=== PATIENT | female | born 1960 | race Caucasian/White ===

== ENCOUNTER → 2020-08-27 | Outpatient (CLI) | payer MEDICARE ==
[~2020-08-27] MED LIST: DEXILANT30 MG PO; DIFLUCAN150 MG PO; NEURONTIN 300300 MG PO; NYSTATIN100000 UNI PO; SYMBICORT 16010.2 GM INH; TIZANIDINE HCL4 MG PO; ZANAFLEX4 MG PO
== END ==
LOC: KOH-I 09:51
DX: S62.347A Nondisplaced fracture of base of fifth metacarpal bone, left hand, initial encounter for closed fracture (principal); W19.XXXA Unspecified fall, initial encounter
CPT/HCPCS: 73200

== ENCOUNTER 2020-12-22 06:49 | Day surgery (SDC) | payer MEDICARE ==
[~2020-12-22] VITALS: Ht 152.4 cm; Wt 59.0 kg
[~2020-12-22 06:49] MED LIST changes: +ATENOLOL25 MG PO; +DICLOFENAC GEL 1% TOP; +DOXEPIN HCL10 MG PO; +GOODY'S PM POW1 EACH PO; +NEURONTIN800 MG PO; +PROAIR HFA8.5 GM INH; +ROPINIROLE HCL0.5 MG PO
[2020-12-22 07:27] LABS: HEMOGLOBIN 9.5 gm/dl (12.3-15.3); RED BLOOD COUNT 3.09 M/UL (4.00-5.10); WHITE BLOOD COUNT 8.2 K/UL (4.5-11.0)
[2020-12-22 07:44] LABS: BUN/CREATININE RATIO 32 (0-10)
[2020-12-22] MEDS ORDERED: PERCOCET 7.5-31 EACH PO (15:00)
[2020-12-23 09:00] LABS: HEMOGLOBIN 8.6 gm/dl (12.3-15.3)
[2020-12-23 09:02] LABS: RED BLOOD COUNT 2.73 M/UL (4.00-5.10); WHITE BLOOD COUNT 11.4 K/UL (4.5-11.0)
[2020-12-23 09:45] LABS: BUN/CREATININE RATIO 28 (0-10)
== END 2020-12-23 11:54 | disposition home or self-care (01) ==
LOC: OR 06:49 → M/S 15:44 → OR 12-23 11:54
PROVIDERS: Orthopaedic Surgery
PROC: 0QSH06Z Reposition Left Tibia with Intramedullary Internal Fixation Device, Open Approach (ICD-10-PCS; principal; 2020-12-22 13:00)
PROC: 3E0T3BZ Introduction of Anesthetic Agent into Peripheral Nerves and Plexi, Percutaneous Approach (ICD-10-PCS; principal; 2020-12-22 13:00)
DX: S82.252A Displaced comminuted fracture of shaft of left tibia, initial encounter for closed fracture (principal); S82.832A Other fracture of upper and lower end of left fibula, initial encounter for closed fracture; I10 Essential (primary) hypertension; K21.9 Gastro-esophageal reflux disease without esophagitis; J44.9 Chronic obstructive pulmonary disease, unspecified; M06.9 Rheumatoid arthritis, unspecified; M19.90 Unspecified osteoarthritis, unspecified site; M32.9 Systemic lupus erythematosus, unspecified; F17.210 Nicotine dependence, cigarettes, uncomplicated; M81.0 Age-related osteoporosis without current pathological fracture; Z20.822 Contact with and (suspected) exposure to COVID-19; Z79.899 Other long term (current) drug therapy; W10.9XXA Fall (on) (from) unspecified stairs and steps, initial encounter
CPT/HCPCS: 36415; 71045; 73590; 76000; 80048; 85025; 93005; 94760; 97161; 97166; 97530-GP-CQ; 97535; C1713; J0690; J1100; J1170; J2001; J2250; J2405; J2704; J2795; J3010; J7120; U0002